=== PATIENT | male | born 1975 | race Caucasian/White ===

== ENCOUNTER 2020-07-24 10:34 | Outpatient (REF) | payer OTHER, SELFPAY ==
--- NOTE | 2020-07-24 13:12 | MHC.AU.ANO ---
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 Hearing aids were not warranted at the time. He feels he hears okay in most situations, but has noticed he misses some of the sharper consonants. 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 Cerumen removal performed. Minor abrasion noted on bottom of canal after procedure. Tympanometry: Tympanometry performed due to: To assess integrity of the middle ear system Right Ear: Normal Middle Ear System (Type A) Left Ear: Normal Middle Ear System (Type A) Hearing Evaluation: Transducer(s) Used: Circumaural Headphones Method: Conventional Audiometry Stimuli Used: Pure Tones Right Ear: Description of Hearing: Normal from 250-3000 Hz, steeply sloping to moderately-severe sensorineural hearing loss Left Ear: Description of Hearing: Normal from 250-3000 Hz, steeply sloping to moderately-severe sensorineural hearing loss Speech Recognition Threshold (SRT): Method Used: Recorded Lists Stimuli Used: Spondee Words Right Ear: 15 dBHL Left Ear: 20 dBHL Word Discrimination: Method: Recorded Lists Word Lists Used: NU-6 Right Ear: 92% at 55 dBHL Left Ear: 100% at 55 dBHL Most Comfortable Level (MCL): Right Ear: 55 dBHL Left Ear: 55 dBHL QuickSIN: 2 dB SNR loss, which suggests normal level of difficulty hearing in noise Recommendations: Audiological re-evaluation in 1-2 years, or sooner if changes are noted. Amplification is not warranted at this time. Diagnosis: Primary Diagnosis: H90.3 Bilateral Sensorineural Hearing Loss Signature: Provider: Diego Rios, CCC-A
== END 2020-07-24 10:35 | disposition home or self-care (01) ==
LOC: HO.SH 10:34
PROVIDERS: Visit Provider Physician Assistant
DX: H91.93 Unspecified hearing loss, bilateral (principal)
CPT/HCPCS: 92557; 92567